=== PATIENT | female | born 1960 | race Caucasian/White ===

== ENCOUNTER → 2018-06-30 15:51 | Outpatient (CLI) | payer BC, SELFPAY ==
--- NOTE | 2018-06-30 16:08 | MM_ITS ---
MM Dig screening mamm BI w/CAD ORDERING PHYSICIAN : Marylu Michaud PATIENT AGE: 57 years GENDER: Female COMPARISON: August 2016, April 2015, January 2014 Also film screen study November 2007 INDICATION: ITS.REASON: SCREENING 57-year-old. No new complaints. History sheet states she Does taking female hormones nonspecified.. Noncontributory family history TECHNIQUE: Standard CC and MLO images were obtained. R2 CAD reviewed. FINDINGS: Moderately dense heterogeneous breast pattern. Mammography interpretation is slightly more difficult and less sensitive and breast of this heterogeneous moderate dense character. Moderate scattered fibroglandular elements with minimal areas of nodularity bilaterally. RIGHT BREAST:: Small 8 x 1.5 mm focal ovoid nodular appearing density at lateral left breast on cc view, labeled A. Similar less evident density seen here previous studies, but this area denser and evident on today's study..-It may merely reflect summation shadow... Just posterior to this is a small stable more stellate area labeled B which is unchanged 2013. Most Likely benign summation shadow as well. however with these observations I would suggest cc spot views here at the lateral breast; & just 2 MLO spot views--superior & another one inferior towards more superior as well as inferior breast.. Consider ultrasound to further survey of dense inhomogeneous character breast LEFT BREAST:. Nodularity densities at the left breast appears similar to 2016. & 2014 & 2014-. These are labeled X, Y, Z . Areas X and Y appear slightly denser today but I believe this is merely due to technique, & compression. Doubt there is been a significant change. . This can be followed but would suggest spot views X and Y with patient returns here at the left breast as well, along with ultrasound survey of the left breast again I believe these are for the most part long standing stable densities a similar to 2014 (Areas Z does not not require spot views only X and Y ; as nodule Z appears to be a long-standing stable benign intramammary node, at the far superior breast. & Not of concern) -------IMPRESSION: Moderate density, heterogeneous breast Small areas of focal density bilaterally, which I believe are merely accentuated features from before, reflecting technique along with some additional summation shadows..-Favor these likely stable benign feature but would benefit from additional views and ultrasound Recommended bilateral Spot views and bilateral breast ultrasound bilateral BI-RADS Category: 0 Need Additional Imaging Evaluation RECOMMENDED FOLLOW-UP: IMM - IMMEDIATE FOLLOW-UP RECOMMENDED Bilateral Spot views. Bilateral breast ultrasound (A letter has been sent to the patient regarding results of the study.)
== END ==
PROVIDERS: PCP Internal Medicine Adolescent Medicine; Visit Provider Nurse Practitioner Family
DX: Z12.31 Encounter for screening mammogram for malignant neoplasm of breast (principal)
CPT/HCPCS: 77067

== ENCOUNTER → 2018-07-20 14:22 | Outpatient (CLI) | payer BC, SELFPAY ==
--- NOTE | 2018-07-20 14:28 | MM_ITS ---
MM Dig mamm BI DX w/CAD, US breast RT complete, US breast LT complete INDICATION: Follow-up abnormal mammogram ORDERING PHYSICIAN: Marylu Michaud PATIENT AGE: 57 years COMPARISON: 06/30/2018, 08/18/2016 TECHNIQUE: Problem solving views of both breasts along with bilateral breast ultrasound FINDINGS: Average to dense fibroglandular tissue decreases the sensitivity of mammography. Right breast: Asymmetric density once again noted in the lateral aspect of the right breast in the subareolar region which partially compresses out and may be due to asymmetric fibroglandular tissue as opposed to a true nodule. No sonographic abnormality detected in this region. No malignant appearing mass or malignant appearing microcalcification. Right breast ultrasound: No cystic or solid lesions demonstrated. No sonographic abnormality to correspond to the asymmetric density in the lateral right breast. Left breast: There is a well-circumscribed nodule in the upper outer aspect of the left breast measuring 8 mm unchanged. Scattered areas of asymmetric density are present in the retroareolar region on the left including an asymmetric density in the medial aspect of the left breast at 9:00 measures 8 x 4 mm which is labeled X on the screening exam. Asymmetric density in the retroareolar region on the left labeled Y. These areas are probably unchanged dating back to 01/16/2014. No sonographic correlates. No suspicious appearing mass evident. Left breast ultrasound: Hypoechoic nodule 4:00 which may be due to a cyst measuring 5 mm. Benign-appearing. No suspicious nodules evident. IMPRESSION: No convincing evidence of malignancy. Probably benign findings bilaterally. Recommend bilateral 6 month mammographic follow-up and left sonographic follow-up BI-RADS Category: 3 Probably Benign Finding Short Term Follow-up RECOMMENDED FOLLOW-UP: 6M - 6 MONTH FOLLOW-UP (A letter has been sent to the patient regarding results of the study.)
== END ==
PROVIDERS: PCP Nurse Practitioner Family; Visit Provider Nurse Practitioner Family
DX: R92.8 Other abnormal and inconclusive findings on diagnostic imaging of breast (principal)
CPT/HCPCS: 76641; 77066

== ENCOUNTER → 2019-12-20 07:49 | Outpatient (CLI) | payer BC, SELFPAY ==
--- NOTE | 2019-12-20 07:52 | MM_ITS ---
PROCEDURE: MM DIG SCREENING MAMM BI W/CAD Digital Breast Tomosynthesis Included CLINICAL INDICATION: SCREENING Personal or family history of breast cancer. COMPARISON: [facility] DIG MAMM-SCREEN FRANKY from 08/18/2016 [facility] MM Dig screening mamm BI w/CAD from 06/30/2018 [facility] MM Dig mamm BI DX w/CAD from 07/20/2018 TECHNIQUE: Standard CC and MLO images and 3D Tomosynthesis was obtained. R2 CAD reviewed. FINDINGS: Moderate diffuse fibroglandular densities are seen throughout both breasts and the findings are fairly symmetrical bilaterally. There is a benign-appearing calcification right breast. There is a stable benign-appearing nodular density upper-outer quadrant left breast likely a low-lying node or possibly fibroadenoma. There is no new or suspicious lesion in either breast and no suspicious microcalcifications. There are small nodes in both axilla. IMPRESSION: Moderate diffuse breast density with no suspicious lesions seen BI-RAD Category: 2 Benign Finding(s) FOLLOW-UP: 1YR 1 Year Follow-up (A letter has been sent to the patient regarding results of the study.) Dictated by: Dr. Liborio Mirza MD 12/24/2019 10:[address] Liborio Mirza MD in [place] 12/24/2019 10:09
== END ==
PROVIDERS: PCP Nurse Practitioner Family; Visit Provider Nurse Practitioner Family
DX: Z12.31 Encounter for screening mammogram for malignant neoplasm of breast (principal)
CPT/HCPCS: 77063; 77067

== ENCOUNTER → 2020-03-06 07:46 | Outpatient (CLI) | payer BC, SELFPAY ==
--- NOTE | 2020-03-06 07:50 | CT_ITS ---
PROCEDURE: CT LUNG SCREENING CLINICAL INDICATION: H/O NICOTINE DEPENDENCE COMPARISON: No exams were available for comparison TECHNIQUE: The exam was performed on a GE Light Speed [address] scanner using 2.90 mGy CTDI. A low dose helical CT CHEST was performed on a multi-detector scanner. All CT scans at the facility use one or more dose reduction, viz: automated exposure control, ma/kV adjustment per patient size (including targeted exams where dose is matched to indication, i.e. head), or iterative reconstruction technique. The LDCT was performed in a facility that meets the criteria for the screening program. Data regarding this exam was submitted to ACR which is an approved registry. The order for this exam indicates that it came as a result of a lung cancer screening counseling shard decision-making visit that included all the elements required of such a visit including smoking cessation. The radiologist interpreting this exam meets the CMS criteria for the LDCT lung cancer screening program. The exam is reported using the Lung-RADS classification scale and reported to the ACR registry. NOTE: This study was performed for the specific purposes of lung cancer screening and is not an alternative to diagnostic chest CT. RADIATION DOSE: CTDI vol(CT dose Index-volume) = 2.90mG DLP (Dose Length Product) = 104.9 mGcm Lung Rads Category: FINDINGS: COPD, centrilobular emphysema 3 mm noncalcified nodule right upper lobe image 32 series 4 4 mm noncalcified nodule in the right major fissure image 46 series 4 5 mm noncalcified nodule right upper lobe posterior segment image 28 series 4. 4 mm noncalcified nodule right upper lobe image 29 series 4. Calcified granuloma left upper lobe. Calcified nodes in the mediastinum. OTHER FINDINGS: There is thickening of the gastroesophageal junction. This is nonspecific and may only be due to nondistention. Neoplasm or esophagitis is also considered in the differential diagnosis. Barium swallow or upper endoscopy may provide further evaluation. The IMPRESSION: Lung rads category 3 probably benign right-sided pulmonary nodules. Recommend six-month diagnostic CT chest without and with contrast There is thickening of the gastroesophageal junction. This is nonspecific and may only be due to nondistention. Neoplasm or esophagitis is also considered in the differential diagnosis. Barium swallow or upper endoscopy may provide further evaluation. . Dictated by: Gaston Heck MD 03/12/2020 09:40 Electronically signed by Gaston Heck MD in [place] 03/12/2020 09:40
== END ==
PROVIDERS: PCP Nurse Practitioner Family; Visit Provider Nurse Practitioner Family
DX: F17.210 Nicotine dependence, cigarettes, uncomplicated (principal)

== ENCOUNTER → 2020-03-20 15:56 | Outpatient (POV) | payer BC, SELFPAY | PROVIDERS: PCP Nurse Practitioner Family; Visit Provider Dermatology | DX: Z00.00 Encounter for general adult medical examination without abnormal findings (principal) ==

== ENCOUNTER → 2020-04-05 08:32 | Outpatient (CLI) | payer BC, SELFPAY ==
--- NOTE | 2020-04-05 08:37 | FL_ITS ---
PROCEDURE: FL BARIUM SWALLOW CLINICAL INDICATION: THICKENING OF ESOPHAGUS COMPARISON: No exams were available for comparison TECHNIQUE: In the upright position the patient was observed to swallow barium in both the AP and lateral view. The cervical esophagus was examined under fluoroscopy with images obtained. The patient was then placed prone in the right anterior oblique position and was observed to swallow barium with Valsalva technique . FLUOROSCOPY TIME: 1 minutes and 23 seconds FINDINGS: There was no evidence of aspiration. There was normal peristalsis. No filling defects or mucosal abnormalities. No masses or strictures. There is a small sliding hiatal hernia with a mildly constricting Schatzki's ring.. The ring easily permitted passage of a 5 mm barium tablet. No annular constricting lesions. IMPRESSION: Small sliding hiatal hernia with mildly constricting Schatzki's ring Dictated by: Gaston Heck MD 04/05/2020 16:33 Electronically signed by Gaston Heck MD in [place] 04/05/2020 16:33
== END ==
PROVIDERS: PCP Nurse Practitioner Family; Visit Provider Nurse Practitioner Family
DX: K22.8 Other specified diseases of esophagus (principal)
CPT/HCPCS: 74220

== ENCOUNTER → 2020-04-17 13:15 | Outpatient (POV) | payer BC, SELFPAY | PROVIDERS: PCP Nurse Practitioner Family; Visit Provider Dermatology | DX: Z00.00 Encounter for general adult medical examination without abnormal findings (principal) ==

== ENCOUNTER → 2021-01-14 14:43 | Outpatient (CLI) | payer OTHER, SELFPAY ==
--- NOTE | 2021-01-14 14:51 | CT_ITS ---
PROCEDURE: CT CHEST WO CON CLINICAL INDICATION: LUNG NODULE, MULTIPLE Follow up ldls 03/06/2020. COMPARISON: CT CT LUNG SCREENING from 03/06/2020 TECHNIQUE: Axial images obtained with sagittal and coronal reformats. All CT scans at the facility use one or more dose reduction, viz: automated exposure control, ma/kV adjustment per patient size (including targeted exams where dose is matched to indication, i.e. head), or iterative reconstruction technique. FINDINGS: HEART AND MEDIASTINAL STRUCTURES: There are few scattered small mediastinal nodes which appear stable. The largest node measures mm in AP dimension in the pretracheal region unchanged. Calcified nodes are present in the precarinal region. There is minimal thickening of the pericardium anteriorly not significantly changed. Thickened GE junction once again noted.. LUNGS AND PLEURAL SPACES: Centrilobular emphysema. Scattered small pulmonary nodules are once again noted. Previously the largest nodule was in the superior segment of the right lower lobe. That nodule is no longer apparent. Small Jyoti fissural nodule right lower lobe image 44 series 3 at 4 mm unchanged. Calcified granulomas left upper lobe. Mild bronchial thickening. BONY STRUCTURES: Thoracic scoliosis convex right. No acute bony findings. UPPER ABDOMEN: Thickened GE junction as before. Numerous punctate calcifications of the liver and spleen ADDITIONAL FINDINGS: Bilateral lipomas in the lower serratus muscle posteriorly on both sides. IMPRESSION: 1. Small pulmonary nodules once again noted. The largest nodule which was in the right lower lobe is no longer apparent. Suggest continued annual LDCT 2. COPD with centrilobular emphysema. 3. No change thickened GE junction There is thickening of the gastroesophageal junction. This is nonspecific and may only be due to nondistention. Neoplasm or esophagitis is also considered in the differential diagnosis. Barium swallow or upper endoscopy may provide further evaluation. Dictated by: Gaston Heck MD 01/15/2021 06:38 Gaston Heck MD in [place] 01/15/2021 06:38
== END ==
PROVIDERS: PCP Nurse Practitioner Family; Visit Provider Nurse Practitioner Family
DX: R91.8 Other nonspecific abnormal finding of lung field (principal)
CPT/HCPCS: 71250

== ENCOUNTER → 2021-05-02 07:39 | Outpatient (CLI) | payer OTHER, SELFPAY ==
--- NOTE | 2021-05-02 07:43 | MM_ITS ---
PROCEDURE: MM DIG SCREENING MAMM BI W/CAD Digital Breast Tomosynthesis Included CLINICAL INDICATION: SCREENING COMPARISON: MG [facility] MM Dig screening mamm BI w/CAD from 06/30/2018 MG [facility] MM Dig mamm BI DX w/CAD from 07/20/2018 MG MM DIG SCREENING MAMM BI W/CAD from 12/20/2019 TECHNIQUE: Standard CC and MLO images and 3D Tomosynthesis was obtained. R2 CAD reviewed. FINDINGS: Average to dense fibroglandular tissue with bilateral benign-appearing stable nodules and areas of asymmetry.No suspicious appearing mass, malignant-appearing microcalcification, architectural distortion, or skin thickening. No significant change IMPRESSION: Benign findings BI-RAD Category: 2 Benign Finding FOLLOW-UP: 1 YR 1 Year Follow-up (A letter has been sent to the patient regarding results of the study.) Dictated by: Gaston Heck MD 05/07/2021 09:29 Gaston Heck MD in [place] 05/07/2021 09:29
== END ==
PROVIDERS: PCP Nurse Practitioner Family; Visit Provider Nurse Practitioner Family
DX: Z12.31 Encounter for screening mammogram for malignant neoplasm of breast (principal)
CPT/HCPCS: 77063; 77067

== ENCOUNTER → 2021-11-05 10:19 | Outpatient (CLI) | payer OTHER, SELFPAY ==
[2021-11-05 11:31] LABS: Alanine Aminotransferase 18 U/L (12-78); Albumin/Globulin Ratio 1.7 (1.1-1.8); Alkaline Phosphatase 84 U/L (38-126); Anion Gap 14.5 mEq/L (5-15); Aspartate Amino Transferase 28 U/L (14-36); Bilirubin,Total 0.5 mg/dl (0.2-1.3); Blood Urea Nitrogen 18 mg/dl (7-17); Calcium 9.8 mg/dl (8.4-10.2); Carbon Dioxide 27 mmol/L (22.0-30.0); Chloride 103 mmol/L (98-107); Chol/HDL Ratio 4.5 (1-3.5); Cholesterol 203 mg/dl (140-200); Estimated Glomerular Filt Rate 73 ml/min (>60); GFR (African American) 88 ML/MIN (>60); Globulin 2.9 g/dL (1.3-3.2); Glucose 137 mg/dl (74-100); HDL Cholesterol 45 mg/dl (40-60); Potassium 5.5 mmoL/L (3.5-5.1); Sodium 139 mmol/L (136-145); Total Protein,Serum 7.9 g/dl (6.3-8.2); Triglycerides 243 mg/dl (30-150); VLDL Cholesterol 49 mg/dL (0-40)
[2021-11-05 11:42] LABS: Direct LDL Cholesterol 121.29 mg/dL (100-129)
[2021-11-05 11:52] LABS: Hemoglobin A1C 6.4 % (4.0-6.0)
[2021-11-05 12:02] LABS: Thyroid Stimulating Hormone 1.33 uIU/mL (0.465-4.68)
== END ==
PROVIDERS: Visit Provider Nurse Practitioner Family
DX: I10 Essential (primary) hypertension (principal); R73.03 Prediabetes
CPT/HCPCS: 36415; 80053; 80061; 83036; 84443

== ENCOUNTER → 2022-09-30 12:43 | Outpatient (CLI) | payer OTHER, SELFPAY ==
--- NOTE | 2022-09-30 12:50 | MM_ITS ---
PROCEDURE INFORMATION: Exam: MG Bilateral Screening 3D Mammography Exam date and time: 09/30/2022 12:50 PM Age: 61 years old Clinical indication: Screening examination TECHNIQUE: Imaging protocol: Bilateral Screening tomosynthesis and 2D mammography including computer-aided detection (CAD) when performed. COMPARISON: 1. MG MM DIG SCREENING MAMM BI W/CAD 05/02/2021 8:01 AM 2. MG MM DIG SCREENING MAMM BI W/CAD 12/20/2019 8:06 AM 3. MG [facility] MM Dig mamm BI DX w/CAD 07/20/2018 2:57 PM FINDINGS: MAMMOGRAPHY: Breast composition: The breasts are heterogeneously dense, which may obscure small masses. Mass: No suspicious masses. Architectural distortion: No suspicious distortion. Calcifications: No suspicious calcifications. Asymmetric density: None. Skin thickening: None. Axillary adenopathy: None. IMPRESSION: No mammographic evidence of malignancy. Annual screening is recommended unless otherwise clinically indicated. ASSESSMENT: BI-RADS Category 1: Negative
--- NOTE | 2022-09-30 12:50 | CT_ITS ---
FINAL REPORT TECHNIQUE: Thin section axial images were obtained from the lung apices through the upper abdomen without contrast. This study was performed with techniques to keep radiation doses as low as reasonably achievable (ALARA). Individualized dose reduction techniques using automated exposure control or adjustment of mA and/or kV according to the patient's size were employed. CLINICAL HISTORY: H/O NICOTINE DEPENDENCE COMPARISON: 01/14/2021 FINDINGS: There is no hilar lymphadenopathy. There are stable small mediastinal and axillary lymph nodes. There is no pleural or pericardial effusion. There is emphysema and evidence of prior granulomatous disease. There are a few tiny bilateral noncalcified pulmonary nodules, unchanged. A small nodule along the right major fissure is stable and likely an intra fissural lymph nodes. There is no consolidation. No new nodules are identified. Limited, unenhanced evaluation of the upper abdomen demonstrates a right adrenal nodule consistent with an adenoma but is unchanged. . There is no acute osseous abnormality. IMPRESSION: No acute intrathoracic abnormality. Stable tiny noncalcified pulmonary nodules favored to be related to granulomatous disease. Reviewed, Interpreted and Dictated by Gabriella Shah MD Transcribed by Cheryle Stallworth Authenticated and [facility]
== END ==
PROVIDERS: PCP Nurse Practitioner Family; Visit Provider Nurse Practitioner Family
DX: Z12.31 Encounter for screening mammogram for malignant neoplasm of breast (principal); F17.200 Nicotine dependence, unspecified, uncomplicated
CPT/HCPCS: 71250; 77063; 77067

== ENCOUNTER 2023-12-10 09:11 | Outpatient (CLI) | payer OTHER, SELFPAY ==
--- NOTE | 2023-12-10 09:17 | MM_ITS ---
PROCEDURE INFORMATION: Exam: MG Bilateral Screening 3D Mammography Exam date and time: 12/10/2023 9:22 AM Age: 63 years old Clinical indication: Screening examination TECHNIQUE: Imaging protocol: Bilateral Screening tomosynthesis and 2D mammography including computer-aided detection (CAD) when performed. COMPARISON: 1. MG MM DIG SCREENING MAMM BI W/CAD 09/30/2022 12:50 PM 2. MG MM DIG SCREENING MAMM BI W/CAD 05/02/2021 8:01 AM FINDINGS: MAMMOGRAPHY: Breast composition: The breasts are heterogeneously dense, which may obscure small masses. Mass: None. Architectural distortion: None. Calcifications: No suspicious calcifications. Asymmetric density: None. Skin thickening: None. Axillary adenopathy: None. IMPRESSION: No mammographic evidence of malignancy. Annual screening is recommended unless otherwise clinically indicated. ASSESSMENT: BI-RADS Category 1: Negative
--- NOTE | 2023-12-10 09:18 | CT_ITS ---
FINAL REPORT TECHNIQUE: Thin section axial images were obtained from the lung apices to the upper abdomen by computed tomography. Reformatted images were obtained and reviewed. This study was performed with techniques to keep radiation doses al low as reasonably achievable (ALARA). Individualized dose reduction techniques using automated exposure control or adjustment of mA and/or kV according to the patient's size were employed. CLINICAL HISTORY: H/O TOBACCO USE smoker, /2 x 40 years COMPARISON: 09/30/2022 FINDINGS: CHEST CT LOW DOSE 62-year-old female, current smoker, 20+ pack year history. CTDI vol (mGy): 2.9 DLP (mGy-cm): 98.47 There is no axillary adenopathy. There is no mediastinal or hilar mass or adenopathy. The heart is normal in size. There is no pericardial or pleural effusion. There is mild emphysema and mild pulmonary scarring. Lung window images demonstrate several small noncalcified nodules. These are stable since the prior examination. There is a node noted along the right major fissure, stable in appearance. Limited images of the upper abdomen once again demonstrate a right adrenal mass, measuring 1.2 cm on today's examination, stable since the prior CT and likely to represent an adrenal adenoma. Calcified granulomas are noted in the liver and spleen.. IMPRESSION: Lung-RADS category 2. Recommend 12 month follow up low dose chest CT. Reviewed, Interpreted and Dictated by Omid Chew MD Transcribed by Stephany Swift Authenticated and . [facility]
--- NOTE | 2023-12-10 10:02 | XR_ITS ---
FINAL REPORT CLINICAL HISTORY: POST MENOPAUSAL COMPARISON: None FINDINGS: Using L1-4, the bone mineral density of the spine is 0.097 g/cm2, corresponding to T-score of -0.5, within normal limits. Using the left hip, the bone mineral density of the femoral neck is 0.824 g/cm2, corresponding to a T-score of -1.0, within normal limits. Using the right hip, the bone mineral density of the femoral neck is 0.733 g/cm2, corresponding to a T-score of -1.0, within normal limits. FRAX not reported because all T-scores at or above -1.0. NOTE: T-score: Standard deviation compared with peak bone mass of young adult mean. *Following the recommendations of the International Society of Bone densitometry, classification of hip BMD is based on the lower of two T-scores; total hip or femoral neck. IMPRESSION: Normal bone mineral density of the lumbar spine and hips. Reviewed, Interpreted and Dictated by Omid Chew MD Transcribed by Sigrid Barrow Authenticated and [facility]
== END 2023-12-10 23:59 ==
LOC: RAD 09:12
PROVIDERS: PCP Nurse Practitioner Family; Visit Provider Nurse Practitioner Family
DX: Z78.0 Asymptomatic menopausal state (principal); Z12.31 Encounter for screening mammogram for malignant neoplasm of breast; Z87.891 Personal history of nicotine dependence
CPT/HCPCS: 71271; 77063; 77067; 77080

== ENCOUNTER 2024-08-02 09:30 | Outpatient (POV) | payer OTHER, SELFPAY | END 2024-08-02 23:59 | disposition home or self-care (01) | LOC: SC 08-03 06:47 | PROVIDERS: Visit Provider Dermatology | DX: Z00.00 Encounter for general adult medical examination without abnormal findings (principal) ==

== ENCOUNTER 2024-11-05 09:00 | Outpatient (CLI) | payer OTHER, SELFPAY ==
[2024-11-05 09:05] LABS: Microscopic, Urine URINE MICROSCOPIC (MICROSCOPIC)
[2024-11-05 09:09] LABS: Appearance,Urine CLEAR (Clear); Bilirubin,Urine Negative (Negative); Blood, Urine 1+ (Negative); Color,Urine YELLOW (Yellow); Glucose,Urine (UA) Negative (Negative); Ketones,Urine Negative (Negative); Leukocyte Esterase,Urine 3+ (Negative); Nitrate,Urine POSITIVE (Negative); Protein,Urine 1+ (Negative); Urobilinogen,Urine 0.2 EU/dl (0.2)
[2024-11-05 10:04] LABS: Bacteria,Urine 2+ /lpf; RBC,Urine Occasional #/hpf (0-3); WBC,Urine 20-50 #/hpf (0-3)
== END 2024-11-05 23:59 | disposition home or self-care (01) ==
LOC: LAB 09:01
PROVIDERS: PCP Nurse Practitioner Family; Visit Provider Student in an Organized Health Care Education/Training Program
DX: R30.0 Dysuria (principal)
CPT/HCPCS: 81001; 87086; 87088; 87186

== ENCOUNTER 2025-03-20 15:20 | Outpatient (CLI) | payer OTHER, SELFPAY ==
--- NOTE | 2025-03-20 15:24 | MM_ITS ---
PROCEDURE INFORMATION: Exam: MG Bilateral Screening 3D Mammography Exam date and time: 03/20/2025 3:24 PM Age: 64 years old Clinical indication: Screening examination TECHNIQUE: Imaging protocol: Bilateral Screening tomosynthesis and 2D mammography including computer-aided detection (CAD) when performed. COMPARISON: 1. MG MM DIG SCREENING MAMM BI W/CAD 12/10/2023 9:22 AM 2. MG MM DIG SCREENING MAMM BI W/CAD 09/30/2022 12:50 PM FINDINGS: MAMMOGRAPHY: Breast composition: There are scattered areas of fibroglandular density. Mass: No suspicious masses. Architectural distortion: None. Calcifications: No suspicious calcifications. Asymmetric density: None. Skin thickening: None. Axillary adenopathy: None. IMPRESSION: No mammographic evidence of malignancy. Annual screening is recommended unless otherwise clinically indicated. ASSESSMENT: BI-RADS Category 1: Negative.
== END 2025-03-20 23:59 | disposition home or self-care (01) ==
LOC: RAD 15:21
PROVIDERS: PCP Nurse Practitioner Family; Visit Provider Nurse Practitioner Family
DX: Z12.31 Encounter for screening mammogram for malignant neoplasm of breast (principal); R92.323 Mammographic fibroglandular density, bilateral breasts
CPT/HCPCS: 77063; 77067

== ENCOUNTER 2025-03-27 08:38 | Outpatient (CLI) | payer OTHER, SELFPAY ==
--- NOTE | 2025-03-27 08:40 | CT_ITS ---
FINAL REPORT CLINICAL HISTORY: HX OF TOBACCO, former smoker, 1ppd for 50 years COMPARISON: 12/10/2023 FINDINGS: CT CHEST LOW DOSE SCREENING HISTORY: Screening exam for lung cancer. 64-year-old female, former smoker, [id number] history. DOSE: CTDI vol: 2.90 mGy, DLP: 109.68 mGy*cm TECHNIQUE: Axial CT without IV contrast administration using low dose protocol. This study was performed with techniques to keep radiation doses as low as reasonably achievable, (ALARA). Individualized dose reduction techniques using automated exposure control or adjustment of mA and/or kV according to the patient's size were employed. No acute lung disease is present. A few small pulmonary nodules are present. There is a 3 mm nodule in the left lower lobe, best seen on image #57 of series 4, stable. There is a nodule associated with the mid right major fissure, best seen on image #47 of series 4, also stable. No new nodules or masses are identified. There is evidence of old calcified granulomatous disease present. No pleural or pericardial effusion is seen. A moderate-sized hiatal hernia is noted, slightly larger than seen on the prior exam of 2023. No adenopathy is identified. There is a left adrenal nodule similar to the prior exam. Note is made of bilateral posterolateral abdominal wall hernias containing fat. IMPRESSION: Multiple nodules once again identified, stable when compared to the prior exam of 2023. LUNG RADS CATEGORY 2 RECOMMENDATION: 12 month LDCT follow up Reviewed, Interpreted and Dictated by Aminta Smith MD Transcribed by Stephany Swift Authenticated and [facility]
== END 2025-03-27 23:59 | disposition home or self-care (01) ==
LOC: RAD 08:38
PROVIDERS: PCP Nurse Practitioner Family; Visit Provider Nurse Practitioner Family
DX: R91.8 Other nonspecific abnormal finding of lung field (principal); Z87.891 Personal history of nicotine dependence
CPT/HCPCS: 71271